=== PATIENT | female | born 1955 | race Caucasian/White ===

== ENCOUNTER → 2021-04-18 | Outpatient (REF) | payer MEDICARE ==
[2021-04-18 15:17] LABS: IMMUNOGLOBULIN G 1610 MG/DL (681-1648); IMMUNOGLOBULIN M 54.9 MG/DL (40-230); RHEUMATOID FACTOR QUANT < 10.0 IU/ML (<15.0)
== END ==
LOC: M LAB REF 13:18
PROVIDERS: ATTEND Internal Medicine Pulmonary Disease
DX: J47.9 Bronchiectasis, uncomplicated (principal); R91.8 Other nonspecific abnormal finding of lung field

== ENCOUNTER 2022-06-06 06:11 | Day surgery (SDC) | payer MEDICARE, BC ==
[~2022-06-06] VITALS: Ht 165.1 cm; Wt 48.9 kg
[~2022-06-06 06:11] MED LIST: ALBUTEROL SULFATE 2.5 MG/0.5 ML INH NEB SOLN INH ONE; DULC100C2 PO; JANU100T PO; LIDOCAINE PRES-FREE 2% 10ML AMP INH ONE; LISI5TAB11 PO; METF500T13 PO; MUCI1TAB18 PO; MULTIVITAMIN PO; OXYB5TAB10 PO; VITA100093 PO; zinc PO
[2022-06-06] MEDS ORDERED: LR 1,000 ML IV SCH (06:40)
[2022-06-06] MEDS ORDERED: EPINEPHrine 1MG/10ML SYRINGE 1.5IN As Ordered ONE (07:14)
[2022-06-06] MEDS ORDERED: LIDOCAINE VISCOUS 2% SOLN 15ML UDC As Ordered ONE (07:14)
[2022-06-06] MEDS ORDERED: LIDOCAINE 1% SDV 30ML VIAL As Ordered ONE (07:14)
[2022-06-06] MEDS ORDERED: THROMBIN 20,000 UNITS KIT As Ordered ONE (07:14)
[2022-06-06] MEDS ORDERED: LIDOCAINE 4% TOPICAL SOLN 50 ML BTL As Ordered ONE (07:14)
[2022-06-06] MEDS ORDERED: MIDAZOLAM INJ 2MG/2ML VIAL (J2250 PER 1MG) As Ordered ONE (07:15)
[2022-06-06] MEDS ORDERED: fentaNYL 100 MCG/2 ML INJECTION As Ordered ONE (07:15)
[2022-06-06] MEDS ORDERED: CETACAINE SPRAY 5GM As Ordered ONE (07:20)
[2022-06-06] MEDS ORDERED: oxyCODONE 5MG TAB PO PRN (08:00)
[2022-06-06] MEDS ORDERED: ONDANSETRON 4MG 2ML VIAL IV PRN (08:00)
[2022-06-06] MEDS ORDERED: fentaNYL 100 MCG/2 ML INJECTION IV PRN (08:00)
[2022-06-06] MEDS ORDERED: MORPHINE 2 MG/ML 1ML VIAL IV PRN (08:00)
[2022-06-06] MEDS ORDERED: LIDOCAINE 2% 100MG/5ML SDV (FOR ANES.) As Ordered ONE (08:03)
[2022-06-06] MEDS ORDERED: propofoL 200 MG/20 ML VIAL As Ordered ONE (08:03)
[2022-06-06 08:22] VITALS: BP 170/81
== END 2022-06-06 08:38 | disposition home or self-care (01) ==
LOC: M SDC 06:11
PROVIDERS: ATTEND Internal Medicine Pulmonary Disease
DX: J47.9 Bronchiectasis, uncomplicated (principal); I10 Essential (primary) hypertension; J44.9 Chronic obstructive pulmonary disease, unspecified; E11.9 Type 2 diabetes mellitus without complications; Z79.84 Long term (current) use of oral hypoglycemic drugs; Z79.899 Other long term (current) drug therapy; F17.210 Nicotine dependence, cigarettes, uncomplicated
CPT/HCPCS: 31624; 87070; 87102; 87116; 87205; 87206; 87428; J2250; J3010